=== PATIENT | female | born 1995 | race Caucasian/White ===

== ENCOUNTER 2020-03-16 03:49 | Emergency (ER) | payer SELFPAY ==
[~2020-03-16] VITALS: Ht 172.7 cm; Wt 68.0 kg
[2020-03-16] MEDS ORDERED: ONDANSETRON HCL 4MG/2ML INJ IV STA (04:16)
[2020-03-16] MEDS ORDERED: LORAZEPAM 2MG/ML CPJ IV STA (04:16)
[2020-03-16] MEDS ORDERED: SODIUM CHLORIDE 0.9% 1,000 ML IV ONE (04:30)
[2020-03-16] MEDS ORDERED: MAGNESIUM SULFATE 4G IN WATER 100ML PREMIX IV ONE (05:00)
[2020-03-16] MEDS ORDERED: DEXTROSE 50% WATER 50ML SYRINGE IV ONE (05:00)
[2020-03-16] MEDS ORDERED: EPINEPHRINE 0.1MG/ML (1:10,000) 10ML SYR ONE (05:00)
[2020-03-16] MEDS ORDERED: SODIUM BICARBONATE 8.4% 1 MEQ/ML 50ML SYR IV ONE ×3 (05:00→06:30)
[2020-03-16] MEDS ORDERED: AZITHROMYCIN 500 MG in DEXT 5% WATER 250 ML IV ONE (05:00)
[2020-03-16] MEDS ORDERED: CEFTRIAXONE 1 G PREMIX 50 ML IV ONE (05:00)
[2020-03-16] MEDS ORDERED: CALCIUM CHLORIDE 1GM/10ML SYR IV ONE (05:00)
[2020-03-16 05:07] LABS: MEAN CORPUSCULAR HEMOGLOBIN 20.7 pg (28.0-32.0); MEAN PLATELET VOLUME 9.5 fl (7.4-10.4); PLATELET 108 x1000/uL (130-400); RED CELL DISTRIBUTION WIDTH 22.3 % (11.6-14.6)
[2020-03-16 05:15] LABS: CHLORIDE 100 mEq/L (98-107)
[2020-03-16 05:16] LABS: CLARITY URINE TURBID (CLEAR); COLOR URINE DARK YELLOW (YELLOW); KETONES URINE TRACE (NEGATIVE); LEUKOCYTE ESTERASE URINE 2+ (NEGATIVE); NITRITE URINE NEGATIVE (NEGATIVE); OCCULT BLOOD URINE 2+ (NEGATIVE); PROTEIN URINE 2+ (NEGATIVE); SPECIFIC GRAVITY URINE 1.021 (1.005-1.030)
[2020-03-16 05:17] LABS: HEMATOCRIT. 20.4 % (36.0-48.0); HEMOGLOBIN. 5.8 g/dL (12.0-16.0)
[2020-03-16 05:20] LABS: ETHANOL BLOOD < 10 mg/dL
[2020-03-16 05:23] LABS: BG DEOXYHEMOGLOBIN 38.2 % (0.0-5.0); BG FRACTION INSPIRED OXYGEN 28; BG HCO3 ACT 4.1 mmol/L (22.0-26.0); BG METHEMOGLOBIN 0.7 % (0.0-1.5); BG OXYGEN SATURATION 61.5 % (92.0-98.5); BG OXYHEMOGLOBIN 61.1 % (94.0-97.0); BG PCO2 23.8 mmHg (35.0-45.0); BG PH 6.856 (7.350-7.450); BG PO2 58.6 mmHg (75.0-100.0); BG TOTAL HEMOGLOBIN 5.9 g/dL (12.0-18.0)
[2020-03-16] MEDS ORDERED: VANCOMYCIN 1 G PREMIX 200 ML IV NR (05:30)
[2020-03-16] MEDS ORDERED: PROPOFOL 10MG/ML 100ML 100 ML IV ONE (05:30)
[2020-03-16] MEDS ORDERED: ETOMIDATE 2MG/ML 10ML VIAL IV ONE ×2 (05:30)
[2020-03-16] MEDS ORDERED: VECURONIUM BROMIDE 10 MG/VIAL IV ONE (05:30)
[2020-03-16] MEDS ORDERED: SODIUM CHLORIDE 0.9% 10ML VIAL ONE (05:30)
[2020-03-16] MEDS ORDERED: ROCURONIUM BROMIDE 10MG/ML VIAL 5ML IV ONE (05:30)
[2020-03-16] MEDS ORDERED: PIPERACILLIN/TAZ 3.375G PREMIX 50 ML IV NR (05:30)
[2020-03-16 05:32] LABS: METHADONE URINE SCREEN NEGATIVE (NEGATIVE); OPIATES URINE SCREEN NEGATIVE (NEGATIVE)
[2020-03-16 05:33] LABS: *BARBITURATES SCREEN URINE NEGATIVE (NEGATIVE); *BENZODIAZEPINES SCREEN URINE NEGATIVE (NEGATIVE); *COCAINE SCREEN URINE NEGATIVE (NEGATIVE); CANNABINOID URINE SCREEN NEGATIVE (NEGATIVE); PHENCYCLIDINE URINE SCREEN NEGATIVE (NEGATIVE)
[2020-03-16 05:36] LABS: *AMPHETAMINES SCREEN URINE PRESUMTIVE POSITIVE (NEGATIVE)
[2020-03-16 05:47] LABS: ATYPICAL LYMPHOCYTES 1; PLATELET ESTIMATE DECREASED
[2020-03-16] MEDS ORDERED: SODIUM BICARBONATE 150 MEQ in DEXTROSE 5% WATER 1,000 ML IV SCH (06:30)
[2020-03-16] MEDS ORDERED: SODIUM BICARBONATE 8.4% MEQ/ML 50ML VIAL IV ONE ×2 (08:27→12:15)
[2020-03-16 10:48] LABS: BG HCO3 ACT 7.7 mmol/L (22.0-26.0); BG PCO2 49.1 mmHg (35.0-45.0); BG PH 6.814 (7.350-7.450); BG PO2 159.4 mmHg (75.0-100.0); BG SAMPLE SITE RIGHT RADIAL; BG VENT MODE VENT - AC
[2020-03-16] MEDS ORDERED: DEXTROSE 50% WATER 50ML SYRINGE IV SCH (11:15)
[2020-03-16] MEDS ORDERED: PHENYLEPHRINE 100 MG in DEXT 5% WATER 240 ML IV PRN ×3 (11:15→13:34)
[2020-03-16] MEDS ORDERED: ALBUMIN HUMAN 25GM/100ML (25%) IV SCH (12:00)
[2020-03-16] MEDS ORDERED: SODIUM BICARBONATE 8.4% 1 MEQ/ML 50ML SYR IV SCH (12:00)
[2020-03-16 12:08] LABS: CREATINE KINASE 192 IU/L (26-192)
[2020-03-16 12:14] LABS: HCG SCREEN NEGATIVE
[2020-03-16] MEDS ORDERED: DEXTROSE 10% WATER 500 ML IV ONE (12:15)
[2020-03-16 12:25] LABS: PROTHROMBIN TIME 30.1 sec (9.6-11.0)
[2020-03-16 12:45] LABS: CHLORIDE 100 mEq/L (98-107)
[2020-03-16] MEDS ORDERED: AMIODARONE HCL 900 MG in DEXT 5% WATER 500 ML IV SCH (13:00)
[2020-03-16] MEDS ORDERED: AMIODARONE HCL 150 MG in DEXT 5% WATER 100 ML IV SCH (13:00)
[2020-03-16 13:12] LABS: PHOSPHORUS 15.7 mg/dL (2.5-4.9)
[2020-03-16] MEDS ORDERED: ALBUTEROL (0.083%) 2.5MG/3ML NEB ONE (13:24)
[2020-03-16 13:37] VITALS: BP 136/94
== END 2020-03-16 17:43 ==
LOC: ER 03:58 → CANBEDREQ 19:11
DX: U07.1 COVID-19 (principal); A41.9 Sepsis, unspecified organism; R65.21 Severe sepsis with septic shock; G93.1 Anoxic brain damage, not elsewhere classified; N17.9 Acute kidney failure, unspecified; J96.01 Acute respiratory failure with hypoxia; D64.9 Anemia, unspecified; F15.10 Other stimulant abuse, uncomplicated; I46.9 Cardiac arrest, cause unspecified; Z66 Do not resuscitate
CPT/HCPCS: 31500; 36415; 36556; 36600; 71045; 76937; 80053; 80305; 80307; 80320; 80329; 81003; 82140; 82375; 82550; 82805; 82962; 83605; 83735; 84100; 84145; 84484; 84703; 85025; 85610; 86850; 86900; 86901; 86920; 87040; 87077; 87186; 93005; 99291; C1752; C9803; J0282; J0456; J0696; J2060; J2405; J2543; J2704; J3370; J3475; J3490; J7030; J7060; J7070; P9047; U0003; Z7610; 94002; P9016; G0480